=== PATIENT | female | born 1965 | race Caucasian/White ===

== ENCOUNTER → 2017-09-07 | Outpatient (CLI) | payer OTHER ==
[2017-09-07 14:05] LABS: BILIRUBIN,URINE NEG (NEG); CLARITY,URINE HAZY; COLOR,URINE AMBER; GLUCOSE,URINE NEG (NEG)
[2017-09-07 14:06] LABS: BACTERIA,URINE 0 /HPF (0-FEW); NITRITE,URINE NEG (NEG); RBC,URINE RARE /HPF (0-2); SQUAMOUS EPITHELIAL CELL,UR FEW /LPF; UROBILINOGEN,URINE 0.2 mg/dL (0.2 mg/dL); WBC,URINE 0 /HPF (0-4)
[2017-09-07 14:09] LABS: BASO % 0 % (0-3); EOS # 0.1 x10^3/uL (0.0-0.7); EOS % 1 % (0-3); HEMATOCRIT 48.8 % (36.0-47.0); HEMOGLOBIN 16.8 g/dL (12.0-15.5); LYMPH # 2.1 x10^3/uL (1.0-4.8); LYMPH % 24 % (24-48); MEAN CORPUSCULAR HEMOGLOBIN 31 pg (25-35); MEAN CORPUSCULAR HGB CONC 35 g/dL (31-37); MEAN CORPUSCULAR VOLUME 91 fL (79-100); MONO # 0.5 x10^3/uL (0.0-1.1); MONO % 6 % (0-9); NEUT # 5.8 x10^3uL (1.8-7.7); NEUT % 69 % (31-73); PLATELET COUNT 178 x10^3/uL (140-400); RED BLOOD COUNT 5.39 x10^6/uL (3.50-5.40); WHITE BLOOD COUNT 8.5 x10^3/uL (4.0-11.0)
[2017-09-07 14:10] LABS: ALBUMIN 3.7 g/dL (3.4-5.0); ALBUMIN/GLOBULIN RATIO 0.9 (1.0-1.7); CALCIUM 9.4 mg/dL (8.5-10.1); CREATININE 0.8 mg/dL (0.6-1.0); POTASSIUM 4.4 mmol/L (3.5-5.1); TOTAL BILIRUBIN 0.6 mg/dL (0.2-1.0); TOTAL PROTEIN 7.9 g/dL (6.4-8.2)
[2017-09-08 04:09] LABS: HCV ANTIBODY >11.0 s/co ratio (0.0-0.9); HEP A IGM ABDY Negative (Negative)
== END | disposition home or self-care (01) ==
LOC: LAB 12:37
PROVIDERS: ATTEND Nurse Practitioner Family
DX: B19.20 Unspecified viral hepatitis C without hepatic coma (principal); R79.89 Other specified abnormal findings of blood chemistry
CPT/HCPCS: 36415; 80053; 80061; 80074; 81001; 85025

== ENCOUNTER → 2017-10-12 | Outpatient (CLI) | payer OTHER ==
--- NOTE | 2017-10-12 09:40 | RAD ---
Indication: Elevated liver enzymes. Hepatitis C. Technique: Ultrasound abdomen complete was performed. No comparison is available. Findings: Visualized pancreas is unremarkable. Aorta is normal caliber. IVC is patent. Liver is normal in size and mildly increased in echogenicity. Gallbladder is absent. Common bile duct is within normal limits at 5 mm. Kidneys are without hydronephrosis or mass. Spleen is not enlarged, 11.8 cm longitudinal. Impression: 1. Fatty infiltration of the liver. 2. Cholecystectomy.
[2017-10-12 19:15] LABS: ALPHA 1 ANTITRYPSIN 159 mg/dL (90-200)
[2017-10-13 16:13] LABS: CERULOPLASMIN 30.4 mg/dL (19.0-39.0)
[2017-10-14 21:08] LABS: HCV ULTRA QUANT PCR 1250000 IU/mL (.)
== END | disposition home or self-care (01) ==
LOC: US 07:51
PROVIDERS: ATTEND Internal Medicine Gastroenterology
DX: B18.2 Chronic viral hepatitis C (principal); K76.0 Fatty (change of) liver, not elsewhere classified; Z90.49 Acquired absence of other specified parts of digestive tract
CPT/HCPCS: 36415; 76700; 82103; 82390; 83540; 86703; 87521

== ENCOUNTER → 2017-12-06 | Outpatient (CLI) | payer OTHER ==
[2017-12-06 15:15] LABS: BARBITURATES NEG (NEG); BENZODIAZEPINES NEG (NEG); CANNABINOIDS NEG (NEG); COCAINE NEG (NEG); METHADONE NEG (NEG); OPIATES NEG (NEG); PHENCYCLIDINE NEG (NEG)
[2017-12-06 15:16] LABS: AMPHETAMINE/METHAMPHETAMINE NEG (NEG)
== END | disposition home or self-care (01) ==
LOC: LAB 12:55
PROVIDERS: ATTEND Internal Medicine Gastroenterology
DX: B19.20 Unspecified viral hepatitis C without hepatic coma (principal)
CPT/HCPCS: 36415; 80307; 87340; 87341; G0479

== ENCOUNTER → 2020-06-18 | Emergency (ER) | payer OTHER ==
[~2020-06-18] VITALS: Ht 160 cm; Wt 83.9 kg
[~2020-06-18] MED LIST: AZIT250T6 PO; AZITHROMYCIN 250 MG TABLET. PO ONE; IBUPROFEN 600 MG TABLET. PO ONE; PRED50TA PO; predniSONE 20 MG TABLET PO ONE
--- NOTE | 2020-06-18 08:13 | PHYS DOC ---
Past History Past Medical History: COPD, Hepatitis Adult General HPI HPI Patient is a 55-year-old female presenting via POV for Covid-like symptoms. States she started developing URI-like symptoms approximately 6 days ago with further involvement of her GI system with nausea, several episodes of nonbloody nonbilious emesis and loose stools. She has been checking her temperature intermittently without any fever. No known sick contacts, states she lives at home with a roommate, denies any known COVID-19 exposure or recent travel. Admits she is an avid smoker, has history of COPD and has required increased use of her inhalers recently. Associated symptoms include nasal congestion, rhinorrhea, postnasal drip, facial tenderness, increased shortness of breath past baseline, wheezing, increased sputum production and change in purulence from typical clear color to yellow, nausea, x2 episodes of nonbloody nonbilious emesis, looser stools than usual without actual diarrhea. Patient denies any fever, headache, syncope, dizziness or falls, chest pain, hemoptysis, abdominal pain, UTI-like symptoms, neuro deficits Review of Systems Review of Systems Fourteen body systems of review of systems have been reviewed. See HPI for pertinent positives and negative responses, other zamorano all other systems are negative, non-pertinent or non-contributory Physical Exam Physical Exam General: Appears well, non toxic, and comfortable Skin: Warm, dry. Normal for ethnicity. HEENT: Atraumatic. PERRLA. Rhinorrhea and congestion. Postnasal drip present. Nasal turbinates boggy b/l. Moist mucous membranes. Uvula midline. Maintaining secretions. No phonation changes. Neck: Trachea midline. Normal ROM. No stridor. Respiratory: Normal WOB. Diffuse wheezing in all park most prominent on exhalation without rhonchi and/or rails. No tachypnea. Cardiovascular: Regular rate and rhythm. Normal peripheral perfusion. Abdomen: Soft. Non tender. No distension. Back: Normal ROM. Musculoskeletal: No swelling or deformity. Neuro: Alert and oriented x 4. MAEE. Lymph: No cervical LAD. Psych: Normal affect and mood. Current Patient Data Vital Signs Vital Signs Date Time Temp Pulse Resp B/P (MAP) Pulse Ox O2 Delivery O2 Flow Rate FiO2 06/18/20 08:20 98.1 105 24 146/77 (100) 97 Room Air EKG EKG EKG ordered and interpreted by myself at 0828 hrs. as sinus rhythm at 80 bpm, unremarkable intervals, no axis deviation, no acute ischemic findings, no STEMI Radiology/Procedures Radiology/Procedures EXAM: AP View of the chest DATE: 06/18/2020 8:40 AM INDICATION: Reason: SHOB / Spl. Instructions: / History: COMPARISON: No Prior FINDINGS: The heart is not enlarged. Mediastinal and hilar contours are normal. Aortic calcifications are seen. No focal parenchymal airspace opacity. Emphysematous changes are seen. No pleural effusion or pneumothorax. IMPRESSION: 1. No radiographic evidence for acute cardiopulmonary process. 2. Emphysematous changes are seen. Electronically signed by: Ge Johnson MD (06/18/2020 9:03 AM) [id number] Heart Score HEART Score for Chest Pain: HEART Score for Chest Pain Response (Comments) Value History Slighlty/Non-Suspicious 0 ECG Normal 0 Age >45 - < 65 1 Risk Factors >3 Risk Factors or Hx CAD 2 Troponin < Normal Limit 0 Total 3 Risk Factors: Risk Factors: DM, Current or recent (<one month) smoker, HTN, HLP, family history of CAD, obesity. Risk Scores: Risk Factors: DM, Current or recent (<one month) smoker, HTN, HLP, family history of CAD, obesity. Course & Med Decision Making Course & Med Decision Making Pertinent Labs and Imaging studies reviewed. (See chart for details) [] Dragon Disclaimer Dragon Disclaimer This electronic medical record was generated, in whole or in part, using a voice recognition dictation system. Departure Departure: Impression: Primary Impression: Acute exacerbation of chronic obstructive pulmonary disease (COPD) Additional Impressions: Viral syndrome Person under investigation for COVID-19 Disposition: 01 DC HOME SELF CARE/HOMELESS Condition: STABLE Referrals: FERN GARCIA APRN (PCP) Patient Instructions: Chronic Obstructive Pulmonary Disease Exacerbation, Viral Syndrome Additional Instructions: You were seen for a COPD exacerbation. Please continue your current regimen for symptom control and if prescribed any medications during your ED visit today, take them as prescribed until completion or your primary doctor changes your medications. 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 Return to the ED if you develop worse tika cough, shortness of breath, fever > 101, chest pain, or any other new or concerning symptoms. In addition, you were seen for a constellation of other symptoms concerning for possible infection with COVID-19. Your physical exam was reassuring. Your chest x-ray was normal. We tested you for COVID-19 but this test does not come back for 1 to 2 days. In the meantime you need to quarantine yourself at home away from all other individuals, especially those who are elderly or have any other chronic health issues or an immunocompromised status. You should return to the ED if you develop worsening cough, shortness of breath, chest pain, or any other new or concerning symptoms. Alternate Tylenol and ibuprofen as needed for body aches and pain. If your test does come back positive you need to quarantine yourself for 10 days until symptom-free. You should make sure to drink plenty of fluids and get plenty of rest. As always, if any concerning signs or symptoms present prior to outpatient follow-up please do not hesitate to call or come back to our ER for repeat evaluation It was a pleasure to take care of you and I wish you a speedy recovery Scripts Prednisone (PREDNISONE) 50 Mg Tablet 1 TAB PO DAILY for AECOPD, #4 TAB Prov: MARIA ISABEL BRUNNER DO 06/18/20 Azithromycin (AZITHROMYCIN TABLET) 250 Mg Tablet 250 MG PO DAILY for ANTI-BIOTIC for 4 Days, #4 TAB 0 Refills Prov: MARIA ISABEL BRUNNER DO 06/18/20 Problem Qualifiers MARIA ISABEL BRUNNER DO Jun 18, 2020 08:13
[2020-06-18 08:20] VITALS: BP 146/77
--- NOTE | 2020-06-18 09:05 | RAD ---
EXAM: AP View of the chest DATE: 06/18/2020 8:40 AM INDICATION: Reason: SHOB / Spl. Instructions: / History: COMPARISON: No Prior FINDINGS: The heart is not enlarged. Mediastinal and hilar contours are normal. Aortic calcifications are seen. No focal parenchymal airspace opacity. Emphysematous changes are seen. No pleural effusion or pneumothorax. IMPRESSION: 1. No radiographic evidence for acute cardiopulmonary process. 2. Emphysematous changes are seen. Electronically signed by: Ge Johnson MD (06/18/2020 9:03 AM) [id number]
--- NOTE | 2020-06-18 12:22 | EKG ---
[address] [address] Test Date: 2020-06-18 Test Time: 08:22:06 Pat Name: COCO SPAULDING Department: Room: Gender: F Senior Mechanical Technician: : 1965 Requested By: MARIA ISABEL BRUNNER Order Number: [id number] Reading MD: Measurements Intervals [place] Rate: 80 P: 62 AR: 152 QRS: 73 QRSD: 68 T: 78 QT: 360 QTc: 419 Interpretive Statements SINUS RHYTHM NORMAL ECG RI6.02 No previous ECG available for comparison
--- NOTE | 2020-06-22 10:46 | NUR ---
IP: notified patient of COVID result.
== END | disposition home or self-care (01) ==
LOC: ER 07:52
DX: J44.1 Chronic obstructive pulmonary disease with (acute) exacerbation (principal); B34.9 Viral infection, unspecified; Z20.828 Contact with and (suspected) exposure to other viral communicable diseases
CPT/HCPCS: 71045; 93005; 99285; J7512; U0003

== ENCOUNTER 2021-02-15 16:33 | Emergency (ER) | payer OTHER ==
[~2021-02-15] VITALS: Ht 160 cm; Wt 83.1 kg
[~2021-02-15 16:33] MED LIST changes: -AZITHROMYCIN 250 MG TABLET. PO ONE; -IBUPROFEN 600 MG TABLET. PO ONE; -predniSONE 20 MG TABLET PO ONE
--- NOTE | 2021-02-15 20:13 | PHYS DOC ---
Past History Past Medical History: COPD, Hepatitis (DOROTA SAUCEDO APRN) Past Surgical History: Appendectomy, Cholecystectomy, Other Additional Past Surgical Histo: Bladder (DOROTA SAUCEDO APRN) Alcohol Use: None (DOROTA SAUCEDO APRN) General Adult EDM: Chief Complaint: HEADACHE HPI: HPI: Patient is a 55-year-old female being seen in the ER for head pain following an injury. Patient reports that her her dog was getting into a fight with another dog and she attempted to break up a dog fight and hit her head. He waited by her primary care provider after the injury in [facility]. She was diagnosed with a toe fracture and "bruised ribs" but she reports she never had imaging of her head. She called her primary care provider today and they told her to go to an ER for CT scan of her head. Patient reports generalized head pain. She rates it 10 out of 10. She has been taking Mobic that was prescribed by her PCP for her pain but reports it is not improving her pain. Patient denies losing consciousness of her head. Patient is reporting photophobia and blurred vision. She denies any nausea or vomiting. Patient is able to bear weight and ambulate with a steady gait. (DOROTA SAUCEDO APRN) Review of Systems: Review of Systems: 14 body systems of the review of systems have been reviewed. See HPI for pertinent positive and negative responses, otherwise all other systems are negative, nonpertinent or noncontributory (DOROTA SAUCEDO APRN) Allergies: Allergies: Allergies Coded Allergies Type Severity Reaction Last Updated Verified aspirin Allergy Severe Shortness of Air 06/18/20 Yes tomato Allergy Intermediate Rash 06/18/20 Yes (DOROTA SAUCEDO APRN) Physical Exam: PE: Constitutional: Well developed, well nourished, no acute distress, non-toxic appearance. [] HENT: Normocephalic, atraumatic, bilateral external ears normal, oropharynx moist, no oral exudates, nose normal. [] Eyes: PERRLA, EOMI, conjunctiva normal, no discharge. [] Neck: Normal range of motion, no tenderness, supple, no stridor. [] Cardiovascular: Normal peripheral perfusion Lungs & Thorax: Normal work of breathing, no tachypnea, right-sided rib pain in which patient was already imaged for. Skin: Warm, dry, no erythema, no rash. [] Back: Normal range of motion Extremities: No tenderness, no cyanosis, no clubbing, ROM intact, no edema. [] Neurologic: Alert and oriented X 3, normal motor function, normal sensory function, no focal deficits noted. [] Psychologic: Affect normal, judgement normal, mood normal. [] (DOROTA SAUCEDO APRN) Current Patient Data: Vital Signs: Vital Signs Date Time Temp Pulse Resp B/P (MAP) Pulse Ox O2 Delivery O2 Flow Rate FiO2 02/15/21 17:24 98.3 97 16 148/96 94 Room Air (DOROTA SAUCEDO APRN) EKG: EKG: [] (DOROTA SAUCEDO APRN) Radiology/Procedures: Radiology/Procedures: PROCEDURE: CT HEAD AND CERVICAL SPINE WO CT HEAD AND C-SPINE WO History: Reason: head injury, FALL / Spl. Instructions: / History: Pain Comparison: None. Technique: Noncontrast CT imaging was performed of the head and cervical spine. Coronal and sagittal reconstructions were performed. Exposure: One or more of the following individualized dose reduction techniques were utilized for this examination: 1. Automated exposure control 2. Adjustment of the mA and/or kV according to patient size 3. Use of iterative reconstruction technique. Findings: Head CT: Tiny right cerebral convexity subdural hematoma with maximal thickness 0.3 cm (series 2 image 21). Hyperdensity within the right caudate and anterior limb internal capsule as well as right putamen. Hypodensity within the left caudate and left posterior putamen. Imaged orbits are unremarkable. Right sphenoid sinus mucosal thickening with secretions. No acute calvarial fracture. Partially imaged metallic foreign body within the left facial region measures 0.[address]: Straightening of the normal cervical lordosis. Normal vertebral body height. No acute fracture. Moderate degenerative disc changes most prominent C3-C4. Soft tissues unremarkable. Impression: Head CT: 1. Tiny acute right cerebral convexity subdural hematoma. 2. Bilateral chronic basal ganglia lacunar infarcts. 3. Metallic foreign body within the left facial region. Cervical spine CT: 1. No acute fracture or subluxation of the cervical spine. 2. Moderate cervical spondylosis. FOR INTERNAL CODING PURPOSES Critical result: Findings discussed with Dr. Weems at 02/15/2021 8:46 PM. RESULT CODE: (C) Electronically signed by: Irvin Chung DO (02/15/2021 8:50 PM) [facility] DICTATED AND SIGNED BY: IRVIN CHUNG DO DATE: 02/15/212038 CC: EMERGENCY,DEPARTMENT; DOROTA SAUCEDO APRN; PCP,NO ~MTH0 0 [] (DOROTA SAUCEDO APRN) Heart Score: C/O Chest Pain: No Risk Factors: Risk Factors: DM, Current or recent (<one month) smoker, HTN, HLP, family history of CAD, obesity. Risk Scores: Score 0 - 3: 2.5% MACE over next 6 weeks - Discharge Home Score 4 - 6: 20.3% MACE over next 6 weeks - Admit for Clinical Observation Score 7 - 10: 72.7% MACE over next 6 weeks - Early Invasive Strategies (DOROTA SAUCEDO APRN) Course & Med Decision Making: Course & Med Decision Making Pertinent Labs and Imaging studies reviewed. (See chart for details) Patient is a 55-year-old female being seen for head pain following a head injury. CT scan of head was performed and it showed a 0.3 cm right subdural hematoma. Patient's pain treated in the ER. Patient's vital signs are stable. Images carotid to . I spoke to transfer center and is agreed to accept patient under his service. Patient rapid Covid tested per protocol. Patient notified of care plan and is agreeable. Patient will be transferred to [facility] via EMS. Care transferred at this time 2150. (DOROTA SAUCEDO APRN) Dragon Disclaimer: Dragon Disclaimer: This electronic medical record was generated, in whole or in part, using a voice recognition dictation system. (DOROTA SAUCEDO APRN) Attending Co-Sign The patient was seen and interviewed as well as examined at the bedside. The chart was reviewed. The case was discussed. Agree with the plan of care. (KARI WEEMS DO) Departure Departure: Impression: Primary Impression: Subdural hematoma Disposition: 02 SHORT TERM HOSPITAL Condition: STABLE Referrals: PCP,NO (PCP) DOROTA SAUCEDO APRN Feb 15, 2021 20:13 KARI WEEMS DO Feb 18, 2021 19:55
[2021-02-15] MEDS ORDERED: HYDROcodone/APAP 5/325MG 1 TAB TABLET PO ONE (20:15)
--- NOTE | 2021-02-15 20:52 | RAD ---
CT HEAD AND C-SPINE WO History: Reason: head injury, FALL / Spl. Instructions: / History: Pain Comparison: None. Technique: Noncontrast CT imaging was performed of the head and cervical spine. Coronal and sagittal reconstructions were performed. Exposure: One or more of the following individualized dose reduction techniques were utilized for thi s examination: 1. Automated exposure control 2. Adjustment of the mA and/or kV according to patient size 3. Use of iterative reconstruction technique. Findings: Head CT: Tiny right cerebral convexity subdural hematoma with maximal thickness 0.3 cm (series 2 imag e 21). Hyperdensity within the right caudate and anterior limb internal capsule as well as right putamen. Hy podensity within the left caudate and left posterior putamen. Imaged orbits are unremarkable. Right sphenoid sinus mucosal thickening with secretions. No acute sherif varial fracture. Partially imaged metallic foreign body within the left facial region measures 0.[address]: Straightening of the normal cervical lordosis. Normal vertebral body height. No acute fracture. Moderate degenerative disc changes most prominent C3-C4. Soft tissues unremarkable. Impression: Head CT: 1. Tiny acute right cerebral convexity subdural hematoma. 2. Bilateral chronic basal ganglia lacunar infarcts. 3. Metallic foreign body within the left facial region. Cervical spine CT: 1. No acute fracture or subluxation of the cervical spine. 2. Moderate cervical spondylosis. FOR INTERNAL CODING PURPOSES Critical result: Findings discussed with Dr. Padilla at 02/15/2021 8:46 PM. RESULT CODE: (C) Electronically signed by: Tee Chung DO (02/15/2021 8:50 PM) [facility]
[2021-02-15 23:01] LABS: BASO % 0 % (0-3); EOS # 0.1 x10^3/uL (0.0-0.7); EOS % 1 % (0-3); HEMATOCRIT 48.1 % (36.0-47.0); HEMOGLOBIN 16.1 g/dL (12.0-15.5); LYMPH # 2.9 x10^3/uL (1.0-4.8); LYMPH % 27 % (24-48); MEAN CORPUSCULAR HEMOGLOBIN 32 pg (25-35); MEAN CORPUSCULAR HGB CONC 34 g/dL (31-37); MEAN CORPUSCULAR VOLUME 95 fL (79-100); MONO # 0.6 x10^3/uL (0.0-1.1); MONO % 5 % (0-9); NEUT % 66 % (31-73); PLATELET COUNT 183 x10^3/uL (140-400); RED BLOOD COUNT 5.07 x10^6/uL (3.50-5.40); RED CELL DISTRIBUTION WIDTH 13.3 % (11.5-14.5); WHITE BLOOD COUNT 10.6 x10^3/uL (4.0-11.0)
[2021-02-15 23:09] LABS: CALCIUM 9.2 mg/dL (8.5-10.1); CREATININE 0.8 mg/dL (0.6-1.0); GFR 74.2; POTASSIUM 4.7 mmol/L (3.5-5.1)
[2021-02-15 23:20] LABS: ALBUMIN 4.2 g/dL (3.4-5.0); TOTAL BILIRUBIN 0.5 mg/dL (0.2-1.0); TOTAL PROTEIN 8.3 g/dL (6.4-8.2)
[2021-02-16] MEDS ORDERED: HYDROcodone/APAP 5/325MG 1 TAB TABLET PO ONE
[2021-02-16 00:30] VITALS: BP 170/90
== END 2021-02-16 00:32 | disposition short-term general hospital (02) ==
LOC: ER 16:33
DX: S06.5X9A Traumatic subdural hemorrhage with loss of consciousness of unspecified duration, initial encounter (principal); R07.81 Pleurodynia; J44.9 Chronic obstructive pulmonary disease, unspecified; Z20.822 Contact with and (suspected) exposure to COVID-19; Z88.6 Allergy status to analgesic agent; Z91.018 Allergy to other foods; W22.8XXA Striking against or struck by other objects, initial encounter; Y93.89 Activity, other specified; Y92.89 Other specified places as the place of occurrence of the external cause; Y99.8 Other external cause status
CPT/HCPCS: 36415; 70450; 72125; 80053; 85025; 87426; 99285; C9803; U0003

== ENCOUNTER 2021-02-21 17:14 | Emergency (ER) | payer OTHER ==
[~2021-02-21] VITALS: Ht 160 cm; Wt 80.8 kg
--- NOTE | 2021-02-21 17:19 | PHYS DOC ---
Past History Past Medical History: COPD, Hepatitis Past Surgical History: Appendectomy, Cholecystectomy, Other Additional Past Surgical Histo: Bladder Alcohol Use: None Adult General Chief Complaint Chief Complaint: HEADACHE HPI HPI Patient is a 55-year-old female presenting via EMS for headache. Reports approximately 1 week ago she was seen at our facility and subsequently transferred to [facility] for a subdural hematoma. She was observed and subsequently discharged from [facility] with advice that subdural hematoma would not require any surgical intervention with continued supportive care advised. Patient reports she has had postconcussive symptoms such as headache and light sensitivity ever since discharge. She followed up with her primary care physician who escalated her pain medication regiment due to uncontrolled pain. She is presenting today with ongoing headache without any trauma, recent exposure, known mechanism of injury or other concerning precipitating event. Nothing known makes better or worse. She has just been taking prescribed Percocet. She has no vision changes, has had no nausea or vomit or other concerning signs or symptoms just a dull generalized headache Review of Systems Review of Systems Fourteen body systems of review of systems have been reviewed. See HPI for pertinent positives and negative responses, other zamorano all other systems are negative, non-pertinent or non-contributory Allergies Allergies Allergies Coded Allergies Type Severity Reaction Last Updated Verified aspirin Allergy Severe Shortness of Air 06/18/20 Yes tomato Allergy Intermediate Rash 06/18/20 Yes Physical Exam Physical Exam Constitutional: Well developed, well nourished, no acute distress, non-toxic appearance. Age appropriate but does appear uncomfortable HENT: Normocephalic, atraumatic, bilateral external ears normal, oropharynx moist, no oral exudates, nose normal. Eyes: PERRLA, EOMI, conjunctiva normal, no discharge. Neck: Normal range of motion, no tenderness, supple, no stridor. Cardiovascular: Heart rate regular, sinus rhythm, no murmurs rubs or gallops Lungs & Thorax: Bilateral breath sounds clear to auscultation Abdomen: Bowel sounds normal, soft, no tenderness, no masses, no pulsatile masses. Nonsurgical abdomen, no peritoneal signs Skin: Warm, dry, no erythema, no rash. Back: No tenderness, no CVA tenderness. Extremities: No tenderness, no cyanosis, no clubbing, ROM intact, no edema. Neurologic: Alert and oriented X 3, cranial nerves II through XII intact, normal motor & sensory function, no focal deficits noted. Psychologic: Anxious affect and mood EKG EKG [] Radiology/Procedures Radiology/Procedures CT head without contrast dated 02/21/2021 5:28 PM Comparison: None CLINICAL INDICATION: Follow-up subdural hematoma. Recurrent headache TECHNIQUE: Contiguous axial imaging of the head was performed from skull base to vertex. One or more of the following individualized dose reduction techniques were utilized for this examination: 1. Automated exposure control 2. Adjustment of the mA and/or kV according to patient size 3. Use of iterative reconstruction technique. FINDINGS: Ventricles and sulci are within normal limits for age. No midline shift or mass effect. Previously described thin extra-axial collection along the right frontotemporal convexity is no longer apparent. No new hemorrhage or extra-axial collection. There is mild patchy low density in the deep/subcortical pe riventricular white matter. Remote lacunar infarcts of the bilateral caudate head and right internal capsule are unchanged. Posterior fossa and brainstem unremarkable. Visualized paranasal sinuses and mastoid air cells are clear. No apparent calvarial abnormality. IMPRESSION: 1. Interval resolution of small subdural hematoma on the right. No new hemorrhage or extra-axial collection. 2. Mild chronic small vessel ischemic changes in the deep/subcortical periventricular white matter, stable. 3. No new abnormality. Electronically signed by: Kayode Emerson MD (02/21/2021 5:31 PM) [facility] Heart Score C/O Chest Pain: No Risk Factors: Risk Factors: DM, Current or recent (<one month) smoker, HTN, HLP, family history of CAD, obesity. Risk Scores: Risk Factors: DM, Current or recent (<one month) smoker, HTN, HLP, family history of CAD, obesity. Course & Med Decision Making Course & Med Decision Making ABCs unremarkable. I disclosed entirety of ER findings and discussed most likely diagnosis of headache secondary to improving subdural hematoma. Other diagnoses were discussed with patient such as meningitis, stroke and other concerning pathology but all deemed less likely causes of patient's presentation. I offered and recommended further ER work-up such as blood work but patient deferred, she just wanted to make sure her subdural was not worsening. No indication for lumbar puncture or other invasive work-up while in ER setting. Patient to discharge home with close PCP and neuro follow-up. Plan of care discussed at length with need for close outpatient follow-up to review today's ER visit stressed. Strict return precautions were also discussed at length with good understanding by patient. Patient voiced understanding and agreement with the plan. Patient knows to come back for repeat evaluation if concerning signs or symptoms present prior to outpatient follow-up. Hemodynamically stable, am bulatory and well-appearing at time of disposition. Dragon Disclaimer Dragon Disclaimer This electronic medical record was generated, in whole or in part, using a voice recognition dictation system. Departure Departure: Impression: Primary Impression: Headache Additional Impression: Subdural hematoma Disposition: HOME / SELF CARE / HOMELESS Condition: STABLE Referrals: PCP,NO (PCP) Additional Instructions: As discussed prior to ER departure, your vital signs, physical examination and repeat CT head imaging was nonconcerning for any emergent or surgical issues such as aggravation of your recent brain bleed. As disclosed, there is little indication for further diagnostic work-up and/or intervention in ER setting. You are likely going to have symptoms which you are describing for a while given the extent of your injury recently. As such, it is pertinent you have frequent close outpatient follow-up with primary care provider, your neurosurgeon at [facility] and if needed us pain specialist. If any concerning signs or symptoms present prior to outpatient follow-up please do not hesitate to come back for repeat evaluation. It was a pleasure to take care of you and I wish you the best going forward Problem Qualifiers MARIA ISABEL BRUNNER DO Feb 21, 2021 17:19
--- NOTE | 2021-02-21 17:33 | RAD ---
CT head without contrast dated 02/21/2021 5:28 PM Comparison: None CLINICAL INDICATION: Follow-up subdural hematoma. Recurrent headache TECHNIQUE: Contiguous axial imaging of the head was performed from skull base to vertex. One or more of the following individualized dose reduction techniques were utilized for this examinat ion: 1. Automated exposure control 2. Adjustment of the mA and/or kV according to patient size 3. Use of iterative reconstruction technique. FINDINGS: Ventricles and sulci are within normal limits for age. No midline shift or mass effect. Previously de scribed thin extra-axial collection along the right frontotemporal convexity is no longer apparent. N o new hemorrhage or extra-axial collection. There is mild patchy low density in the deep/subcortical periventricular white matter. Remote lacunar infarcts of the bilateral caudate head and right interna l capsule are unchanged. Posterior fossa and brainstem unremarkable. Visualized paranasal sinuses and mastoid air cells are clear. No apparent calvarial abnormality. IMPRESSION: 1. Interval resolution of small subdural hematoma on the right. No new hemorrhage or extra-axial erin ection. 2. Mild chronic small vessel ischemic changes in the deep/subcortical periventricular white matter, s table. 3. No new abnormality. Electronically signed by: Kayode Emerson MD (02/21/2021 5:31 PM) [facility]
[2021-02-21 17:48] VITALS: BP 128/98
== END 2021-02-21 17:51 | disposition home or self-care (01) ==
LOC: ER 17:14
DX: S06.5X9A Traumatic subdural hemorrhage with loss of consciousness of unspecified duration, initial encounter (principal); X58.XXXA Exposure to other specified factors, initial encounter; Y93.89 Activity, other specified; Y92.89 Other specified places as the place of occurrence of the external cause; Y99.8 Other external cause status
CPT/HCPCS: 70450; 99284-25